=== PATIENT | female | born 1990 ===

== ENCOUNTER 2018-07-06 11:50 | Emergency (ER) | payer SELFPAY ==
[2018-07-06 12:13] VITALS: BP 129/81
== END 2018-07-06 18:10 | disposition left against medical advice (07) ==
LOC: ED 11:50
DX: O26.891 Other specified pregnancy related conditions, first trimester (principal); R10.9 Unspecified abdominal pain; Z53.21 Procedure and treatment not carried out due to patient leaving prior to being seen by health care provider

== ENCOUNTER 2018-07-20 09:40 | Emergency (ER) | payer SELFPAY ==
[2018-07-20 11:10] VITALS: BP 121/82
--- NOTE | 2018-07-20 12:08 | Emergency Department Report ---
ED Laceration HPI - HPI Chief Complaint: Wound/Laceration Stated Complaint: SPLIT HAND OPEN Time Seen by Provider: 07/20/18 12:03 Occurred When: Today Location: Upper Extremity (R hand) Severity: mild Tetanus Status: Up to Date Laceration Symptoms: Yes Pain, No Foreign Body Sensation, No Numbness, No Weakness ED Review of Systems ROS: Stated complaint: SPLIT HAND OPEN Other details as noted in HPI Comment: All other systems reviewed and negative Skin: as per HPI, other (laceration) ED Past Medical Hx - Past Medical History Previous Medical History?: Yes Hx Asthma: Yes - Surgical History Past Surgical History?: Yes Additional Surgical History: C section - Social History Smoking Status: Never Smoker Substance Use Type: Marijuana - Medications Home Medications: Home Medications Medication Instructions Recorded Confirmed Last Taken Type No Known Home Medications [No 07/20/18 07/20/18 Unknown History Reported Home Medications] Laceration Physical Exam - Exam General: Vital signs noted. No distress. Alert and acting appropriately. Laceration Location: Upper Extremity (R thumb, palmar aspect, just distal to MCP. Very superficial.) Laceration Exam: Yes Normal Distal CMS, No Foreign Body, No Exposed Tendon, Vessel, or Nerve, No Tendon Injury ED Course Vital Signs 07/20/18 11:04 Temperature 98.2 F Pulse Rate 74 Respiratory 16 Rate Blood Pressure 121/82 Blood Pressure 121/82 [Right] O2 Sat by Pulse 100 Oximetry - Laceration /Wound Repair R hand Wound Location: upper extremity Wound Length (cm): 2 Wound's Depth, Shape: superficial Wound Explored: clean Irrigated w/ Saline (ccs): 100 Betadine Prep?: Yes Wound Repaired With: Dermabond Progress: tolerated well ED Medical Decision Making - Medical Decision Making Advised this is very superficial and does not need specific treatment. Dermabond and steri-strip applied at request of patient. F/U PCP. - Differential Diagnosis lac Critical care attestation.: If time is entered above; I have spent that time in minutes in the direct care of this critically ill patient, excluding procedure time. ED Disposition Clinical Impression: Laceration Disposition: DC-01 TO HOME OR SELFCARE Is pt being admited?: No Condition: Good Instructions: Finger Laceration (ED), Skin Adhesive Care (ED) Referrals: DERIC SANCHEZ MD [Primary Care Provider] - 3-5 Days MAX CRUZ MD [Staff Physician] - 3-5 Days Time of Disposition: 12:05
== END 2018-07-20 12:20 | disposition home or self-care (01) ==
LOC: ED 09:40
DX: S61.011A Laceration without foreign body of right thumb without damage to nail, initial encounter (principal); J45.909 Unspecified asthma, uncomplicated; W26.8XXA Contact with other sharp object(s), not elsewhere classified, initial encounter; Y93.89 Activity, other specified; Y92.89 Other specified places as the place of occurrence of the external cause; Y99.8 Other external cause status